=== PATIENT | female | born 1980 | race African-American/Black ===

== ENCOUNTER → 2024-09-17 10:34 | Outpatient (REF) | payer OTHER, SELFPAY ==
[2024-09-17 15:04] LABS: Mumps Virus IgG Positive; Rubeola (Measles) IgG Positive; Varicella Zoster IgG (VZV) Positive
[2024-09-17 20:06] LABS: Hepatitis B Surface Antibody Positive
[2024-09-17 21:44] LABS: Rubella Positive
== END ==
LOC: REG 10:34
PROVIDERS: ATTENDING PHYSICIAN Nurse Practitioner Family
DX: Z23 Encounter for immunization (principal)
CPT/HCPCS: 36415; 86480; 86706; 86735; 86762; 86765; 86787